=== PATIENT | female | born 1940 | race Caucasian/White ===

== ENCOUNTER 2016-12-07 15:09 | Observation (INO) | payer OTHER ==
--- NOTE | ~2016-12-07 | DS ---
Discharge Summary [facility] [address] [place]. [address] NAME: MARYANA OSPINA : 44 STATUS : DIS Amalia PAT#: [id number] AGE: 76 ADM/REG DATE : 12/07/16 MR#: [id number] REPORT SERV DATE: 12/08/16 DICTATED BY: SANJU BRITO SCOT DATE: 12/08/16 REPORT STATUS : Draft TRANSCRIBED BY: MODL DATE: 12/08/16 ADMISSION DATE: 12/07/2016 DISCHARGE DATE: 12/08/2016 DISCHARGE DIAGNOSES: Includes: 1. Weakness and myasthenia gravis that is fully resolved. 2. Tobacco use for 60 plus years. 3. Hyperlipidemia. 4. History of CVA and transient ischemic attack on Plavix therapy. DISCHARGE MEDICATIONS: Are as follows: Lipitor 10 mg at bedtime, Plavix 75 mg daily, and Mestinon 30 mg p.o. three times a day. HISTORY OF PRESENT ILLNESS: This is a pleasant 76-year-old white female, who originally presented with weakness to [facility] Emergency Room. Please see the initial H and P of Dr. Kenton Vernon as the patient was admitted for observation and further workup. She stated that she had been taking a higher dose of her Mestinon, and started this approximately a week ago but since this was increased, the patient has had worsening weakness. Her dose was decreased to 30 mg three times a day, and she had almost immediate resolution of her symptoms and was able the following day to be ambulating in the room and having no weakness symptoms. Her lab work and followup also shows a sodium 145, potassium 4.5, a BUN of 25, creatinine 0.68, white blood cells 9.8, hemoglobin 12.2, hematocrit 37.0 and a TSH of 2.220 and a negative troponin. I did patent counsel the patient extensively on her need to stop smoking and have instructed her to keep her followup with her primary care, Dr. Desai and her neurologist Dr. Gamboa, as currently scheduled. She was felt safe for discharge home. The patient was in agreement with this plan going forward. KELLIE/LETY Sanju Brito NP / [id number] CC: MD Nuha Tellez M.D.
--- NOTE | ~2016-12-07 | HP ---
History And Physical [address] [facility] [place]. [address] NAME: MARYANA OSPINA : 44 STATUS : ADM Amalia PAT#: [id number] AGE: 76 ADM/REG DATE : 12/07/16 MR#: [id number] REPORT SERV DATE: 12/07/16 DICTATED BY: ALEXEY VERNON DATE: 12/07/16 REPORT STATUS : Draft TRANSCRIBED BY: MODClint DATE: 12/07/16 DATE OF ADMISSION: 12/07/2016 CHIEF COMPLAINT: Weakness. HISTORY OF PRESENT ILLNESS: The patient is a 76-year-old female, , with history of TIA, CVA with minimal residuals, who was recently diagnosed from Dr. Kelley's office for myasthenia gravis, approximately two weeks ago, has been on pyridostigmine, recently had dose adjustment about a week ago and since increase in the dose, the patient has had worsening weakness to the point where today she was unable to even get up from the chair. Symptoms have been moderate to severe today but no pain radiating symptoms. Symptoms were mainly with the lower extremity legs. There is no nausea, vomiting, shortness of breath, fever, or chills. No recent illnesses. There are no worsening or relieving symptoms. The patient reports that she believes that after the medication increase, she took only a 30 mg today and through her ER visit, has actually started gaining her strength back. The patient's p.o. has been improved, had been stable, and has good urine output. REVIEW OF SYSTEMS: A 10-point review of systems negative except for that noted in the HPI. PAST MEDICAL HISTORY: TIA, CVA, and myasthenia gravis. SURGICAL HISTORY: 60% of stomach removal in the 70s for ulcers and appendectomy. SOCIAL HISTORY: One pack per day smoker x60 years. No alcohol or illicits. Former . FAMILY HISTORY: Noted for pancreatic cancer in 3 different family members in same blood line along with strokes. ALLERGIES: PENICILLIN AND SULFA. HOME MEDICATIONS: Atorvastatin, she has been for years, Plavix, and Mestinon. PHYSICAL EXAMINATION: VITAL SIGNS: The patient's blood pressure of 153/70, temperature 98, pulse 73, respirations 16, and O2 saturation 98%. Orthostatics lying down patient, 140/59, pulse 72; sitting up, 136/64, pulse 71; and standing up 125/90, pulse 82. GENERAL: In no acute distress, smiling. HEENT: Head normocephalic, atraumatic. EYES: No scleral icterus. EOMI. ENT: Nares patent. Tongue midline. RESPIRATORY: Clear to auscultation. No wheezes. CV: Regular rate. No rubs. GI: Soft, nontender, nondistended. Bowel sounds positive. : Deferred. MUSCULOSKELETAL: Weakness in the lower extremities but as the interview proceeded, the patient started having increased strength in her right legs. She did just History And Physical [address] [place]. [address] NAME: MARYANA OSPINA : 44 STATUS : ADM Amalia PAT#: [id number] AGE: 76 ADM/REG DATE : 12/07/16 MR#: [id number] REPORT SERV DATE: 12/07/16 DICTATED BY: ALEXEY VERNON DATE: 12/07/16 REPORT STATUS : Draft TRANSCRIBED BY: LETY DATE: 12/07/16 recently have a smoking break and although she was wheeled in with wheelchair, was able to stand back on leg although slightly unsteady. Does have left eyelid droop. SKIN: Warm and dry. LYMPH: No cervical or supraclavicular lymphadenopathy. NEUROLOGIC: Left eyelid droop. Proximal lower extremity weakness. Symmetrical strength in hands. Symmetrical smile. Tongue midline. PSYCHIATRIC: Appropriate mood and affect. Multi Skilled Operator strength appears to be improved and at baseline but was reported weaker initially. Orthostatics mildly positive. LABS: CBC grossly within normal limits. BMP: BUN and creatinine 25 and 0.76, glucose 89, sodium 141, bicarb 24, chloride 109, potassium 4.0, and magnesium 1.9. Segs 62. Troponin negative. EKG normal sinus rhythm, rate of 72, QTc 420. ASSESSMENT AND PLAN: 1. Weakness. 2. Azotemia. 3. Tobacco use. 4. Irregular thyroid. PLAN: 1. For weakness, unclear if this is acute myasthenia gravis flare versus medication side effect as the patient reports that she has just recently been started on pyridostigmine for short-term burst with having improvement on 30 mg but when increased to 60 mg, started having chain of decompensation. We will decrease back to 30 mg as the patient while in the emergency room, appears to be showing improvement after decreased dose. We will ask Neurology for further evaluation. The patient has had workup as an outpatient in the recent diagnosis 2 weeks ago. We will ask Case Management also to evaluate as the patient will likely need assist devices during these what appear to be flares for ambulating, possible wheelchair. 2. Azotemia. Gentle IV fluids. 3. Tobacco use. Counseled but went outside to go and smoke while here, has been a smoker for over 60 years. Nicotine patch. 4. Irregular thyroid. Sees ENT as an outpatient. Had recent biopsy but inconclusive. We will check free T4 and TSH in a.m. 5. All questions answered with the patient and family at bedside. DISPOSITION: Pending findings of above. DDN/MODL Alexey Vernon MD / [id number] History And Physical [address] [address] NAME: MARYANA OSPINA : 44 STATUS : ADM Amalia PAT#: [id number] AGE: 76 ADM/REG DATE : 12/07/16 MR#: [id number] REPORT SERV DATE: 12/07/16 DICTATED BY: ALEXEY VERNON DATE: 12/07/16 REPORT STATUS : Draft TRANSCRIBED BY: MODL DATE: 12/07/16 CC: Alexey Vernon MD
[2016-12-07 13:46] LABS: BASOPHILS 0.4 %; BASOPHILS ABSOLUTE 0.04 10/3/uL (0.0-0.16); EOSINOPHILS 0.7 %; EOSINOPHILS ABSOLUTE 0.07 10/3/uL (0.0-0.53); ER CBC TAT 0 Hrs 07 Mins; HEMATOCRIT 41.4 % (36.0-48.0); HEMOGLOBIN 14.1 g/dL (12.0-16.0); IMMATURE GRANULOCYTES 0.4 %; LYMPHOCYTES 26.7 %; LYMPHOCYTES ABSOLUTE 2.65 10/3/uL (0.67-4.30); MEAN CORPUS HGB CONC 34.1 g/dL (32.0-36.0); MEAN CORPUSCULAR HEMOGLOB 30.5 pg (26.0-34.0); MEAN CORPUSCULAR VOLUME 89.4 fL (80-100); MEAN PLATELET VOLUME 9.3 fL (9.2-13.0); MONOCYTES 7.7 %; MONOCYTES ABSOLUTE 0.77 10/3/uL (0.21-1.20); NEUTROPHILS 64.1 %; NEUTROPHILS ABSOLUTE 6.37 10/3/uL (2.02-8.40); PLATELET COUNT 345 10/3/uL (150-400); RBC DISTRIBUTION WIDTH 14.4 % (12.0-16.0); RED CELL COUNT 4.63 10/6/uL (4.0-5.6); WHITE BLOOD CELLS 9.9 10/3/uL (4.5-10.5)
[2016-12-07 13:47] LABS: IMMATURE GRANULOCYTES ABSOLUTE 0.04 10/3/uL (0.0-0.11); MANUAL DIFF NO %
[2016-12-07 14:03] LABS: CALCIUM, SERUM 9.2 MG/DL (8.5-10.4); CHEST PAIN PROFILE TAT 0 Hrs 24 Mins; CHLORIDE, SERUM 109 MMOL/L (96-112); CO2 (CARBON DIOXIDE) 24 MMOL/L (24-34); CREATININE 0.76 MG/DL (0.55-1.02); GFR AFRICAN AMERICAN 90 ML/MIN (>=60); GFR NON AFRICAN AMERICAN 77 ML/MIN (>=60); GLUCOSE, SERUM 89 MG/DL (60-99); SODIUM, SERUM 141 MMOL/L (135-148); TROPONIN I <0.02 NG/ML (<0.05)
[2016-12-07 14:04] LABS: BUN (BLOOD UREA NITROGEN) 25 MG/DL (6-23)
[2016-12-07 14:06] LABS: PARTIAL THROMBO TIME 27.7 SEC (22.5-37.2); PROTIME (NOT ORD) 12.9 SEC (12.0-14.5)
[2016-12-07 14:13] LABS: BASOPHILS 1 %; ER DIFF TAT 0 Hrs 34 Mins; LYMPHOCYTES 33 %; LYMPHOCYTES ABSOLUTE (CALC) 3.27 10/3/uL (0.67-4.30); MONOCYTES 4 %; NEUTROPHILS ABSOLUTE (CALC) 6.14 10/3/uL (2.02-8.40); PLATELET ESTIMATE ADQ (ADEQUATE); RBC MORPHOLOGY NORM (NORMAL); REACTIVE LYMPHS FEW (3-5%) (0-5%); SEGMENTED NEUTROPHIL (0) 62 %; TOTAL NUCLEATED CELLS 100
[2016-12-07 14:48] LABS: WBC (NOT ORDERED) (RFLEX) 0 (0-5)
[2016-12-07 15:05] LABS: ASCORBIC ACID (UR NOT ORDER) NEG (NEG); BILIRUBIN, URINE NEGATIVE (NEG); KETONE, URINE NEGATIVE (NEG); LEUKOCYTE ESTERASE(NOT OR NEG (NEG); NITRITE (URINE) NEG (NEG)
[2016-12-07] MEDS ORDERED: PLAVIX PO (16:24)
[2016-12-07] MEDS ORDERED: LIPITOR10 PO (16:24)
[2016-12-07] MEDS ORDERED: PYRID60 PO (16:25)
[2016-12-08 04:35] LABS: BASOPHILS 0.7 %; BASOPHILS ABSOLUTE 0.07 10/3/uL (0.0-0.16); EOSINOPHILS 1.8 %; EOSINOPHILS ABSOLUTE 0.18 10/3/uL (0.0-0.53); HEMOGLOBIN 12.2 g/dL (12.0-16.0); IMMATURE GRANULOCYTES 0.3 %; IMMATURE GRANULOCYTES ABSOLUTE 0.03 10/3/uL (0.0-0.11); LYMPHOCYTES 32.6 %; MANUAL DIFF NO %; MEAN CORPUSCULAR HEMOGLOB 29.5 pg (26.0-34.0); MEAN CORPUSCULAR VOLUME 89.4 fL (80-100); MEAN PLATELET VOLUME 9.2 fL (9.2-13.0); MONOCYTES 8.4 %; MONOCYTES ABSOLUTE 0.82 10/3/uL (0.21-1.20); NEUTROPHILS 56.2 %; NEUTROPHILS ABSOLUTE 5.52 10/3/uL (2.02-8.40); PLATELET COUNT 317 10/3/uL (150-400); RBC DISTRIBUTION WIDTH 14.8 % (12.0-16.0); RED CELL COUNT 4.14 10/6/uL (4.0-5.6); WHITE BLOOD CELLS 9.8 10/3/uL (4.5-10.5)
[2016-12-08 05:25] LABS: ALKALINE PHOSPHATASE 61 U/L (45-117); BUN (BLOOD UREA NITROGEN) 25 MG/DL (6-23); CALCIUM, SERUM 8.6 MG/DL (8.5-10.4); CHLORIDE, SERUM 114 MMOL/L (96-112); CO2 (CARBON DIOXIDE) 27 MMOL/L (24-34); CREATININE 0.68 MG/DL (0.55-1.02); GFR AFRICAN AMERICAN 100 ML/MIN (>=60); GFR NON AFRICAN AMERICAN 86 ML/MIN (>=60); GLUCOSE, SERUM 102 MG/DL (60-99); POTASSIUM, SERUM 4.5 MMOL/L (3.5-5.3); SGOT(AST) 16 U/L (5-40); SGPT(ALT) 27 U/L (5-65); SODIUM, SERUM 145 MMOL/L (135-148); TOTAL PROTEIN 6.3 G/DL (6.0-8.5)
[2016-12-08 05:26] LABS: A/G RATIO 1.1 (0.7-1.9); ALBUMIN 3.3 G/DL (3.5-5.0); CPK 42 U/L (0-200); FOLATE 34.3 NG/ML (>5.2); TOTAL BILIRUBIN 0.5 MG/DL (0-1.2)
== END 2016-12-08 13:13 | disposition home or self-care (01) ==
LOC: ER 15:09 → CDU1 16:56 → CDU2 17:44
PROVIDERS: Emergency Medicine; Student in an Organized Health Care Education/Training Program
DX: R53.1 Weakness (principal); E78.5 Hyperlipidemia, unspecified; G70.00 Myasthenia gravis without (acute) exacerbation; E07.9 Disorder of thyroid, unspecified; R79.89 Other specified abnormal findings of blood chemistry; F17.210 Nicotine dependence, cigarettes, uncomplicated; Z90.49 Acquired absence of other specified parts of digestive tract; Z86.73 Personal history of transient ischemic attack (TIA), and cerebral infarction without residual deficits; Z88.0 Allergy status to penicillin; Z88.2 Allergy status to sulfonamides
CPT/HCPCS: 80048; 80053; 81001; 82550; 82607; 82746; 83735; 84439; 84443; 84484; 85025; 85610; 85730; 93005; 99285; A9270-GY; G0378